=== PATIENT | female | born 1955 | race Caucasian/White ===

== ENCOUNTER 2017-02-08 18:45 | Inpatient (IN) | payer MEDICARE, MEDICAID ==
[~2017-02-08] VITALS: Ht 167.6 cm; Wt 67.6 kg
[~2017-02-08 18:45] MED LIST: BENZ1TAB10 PO; BUPR-93 PO; FLUO-191 PO; MIRT15 PO; QUET400T PO
[2017-02-08 22:31] VITALS: BP 103/62
[2017-02-08] MEDS ORDERED: LORazepam 2 MG TABLET PO PRN (23:00)
[2017-02-08] MEDS ORDERED: ZOLPIDEM TARTRATE 10 MG TABLET PO PRN (23:00)
[2017-02-09] MEDS: HALOPERIDOL 5 MG TABLET PO PRN ×2 (00:37→20:25)
[2017-02-09 00:50] VITALS: BP 141/77
[2017-02-09] MEDS ORDERED: PNEUMOCOCCAL VACCINE POLYVALENT 0.5 ML VIAL [PPSV23] IM ONE (04:15)
[2017-02-09 08:35] VITALS: BP 129/74
[2017-02-09 09:00] LABS: BASOPHILS % (AUTO) 0.7 % (0.0-2.0); EOSINOPHILS % (AUTO) 2.1 % (1.0-6.0); HEMATOCRIT 38.1 % (36-46); HEMOGLOBIN 12.2 g/dL (12.0-16.0); LYMPHOCYTES # (AUTO) 3.6 K/uL (1.0-4.8); LYMPHOCYTES % (AUTO) 41.5 % (22.0-44.0); MEAN CORPUSCULAR HEMOGLOBIN 31.9 pg (26.0-34.0); MEAN CORPUSCULAR HGB CONC 32.1 G/dL (31.0-37.0); MEAN CORPUSCULAR VOLUME 99 fL (80-100); MONOCYTES # (AUTO) 0.6 K/uL (0.1-1.0); MONOCYTES % (AUTO) 7.2 % (2.0-9.0); NEUTROPHILS # (AUTO) 4.2 K/uL (1.8-7.7); NEUTROPHILS % (AUTO) 48.5 % (40.0-70.0); PLATELET COUNT (AUTO) 245 K/uL (150-450); RED BLOOD CELL COUNT(AUTO) 3.83 MIL/uL (4.00-5.20); RED CELL DISTRIBUTION WIDTH 13.3 % (11.5-14.5); WHITE BLOOD COUNT (AUTO) 8.7 K/uL (4.5-11.0)
[2017-02-09 09:46] LABS: ALANINE AMINOTRANSFERASE 18 U/L (12-78); ANION GAP 6 mmol/L (8-16); ASPARTATE AMINOTRANSFERASE 11 U/L (15-37); BILIRUBIN,TOTAL 0.1 mg/dL (0.1-1.0); CARBON DIOXIDE 29 mmol/L (22-29); CHLORIDE 104 mmol/L (98-107); CREATININE 0.77 mg/dL (0.60-1.30); GLOMERULAR FILTR. RATE CALC > 60 mL/min (>60); POTASSIUM 4.1 mmol/L (3.5-5.1); SODIUM SERUM 139 mmol/L (136-145); THYROID STIMULATING HORMONE 1.14 uIU/mL (0.36-3.74); TOTAL PROTEIN, SERUM 6.2 g/dL (6.4-8.2); UREA NITROGEN, BLOOD 21 mg/dL (7-18)
[2017-02-09 10:27] VITALS: BP 105/71
[2017-02-09] MEDS ORDERED: HydrOXYzine PAMOATE 25 MG CAPSULE PO PRN (15:30)
[2017-02-09 16:00] VITALS: BP 103/69
[2017-02-09] MEDS: HALOPERIDOL 5 MG TABLET PO SCH (16:41)
[2017-02-09] MEDS: FLUoxetine HCL 20 MG CAPSULE PO SCH (16:41)
[2017-02-09] MEDS ORDERED: ACETAMINOPHEN 325 MG TABLET PO PRN (21:15)
[2017-02-09] MEDS ORDERED: IBUPROFEN 400 MG TABLET PO PRN (21:15)
[2017-02-10 06:12] VITALS: BP 106/66
[2017-02-10 08:31] LABS: HEMOGLOBIN A1C 6.5 % (4.5-6.2)
[2017-02-10 08:40] VITALS: BP 91/55
[2017-02-10 08:40] LABS: CHOL/HDL RATIO 5.6 (3.9-5.7); THYROID STIMULATING HORMONE 1.05 uIU/mL (0.36-3.74)
[2017-02-10] MEDS: HALOPERIDOL 5 MG TABLET PO SCH ×2 (08:55→17:32)
[2017-02-10] MEDS: FLUoxetine HCL 20 MG CAPSULE PO SCH (08:55)
[2017-02-10 16:26] VITALS: BP 129/77
[2017-02-11 06:33] VITALS: BP 123/72
[2017-02-11] MEDS ORDERED: FLUO-191 PO (07:56)
[2017-02-11] MEDS ORDERED: HALO5TAB23 PO (07:56)
[2017-02-11] MEDS: HALOPERIDOL 5 MG TABLET PO SCH ×2 (08:14→18:11)
[2017-02-11] MEDS: FLUoxetine HCL 20 MG CAPSULE PO SCH (08:14)
[2017-02-11 16:00] VITALS: BP 110/67
[2017-02-12 03:27] VITALS: BP 106/74
[2017-02-12 08:57] VITALS: BP 118/66
[2017-02-12] MEDS: HALOPERIDOL 5 MG TABLET PO SCH (09:53)
[2017-02-12] MEDS: FLUoxetine HCL 20 MG CAPSULE PO SCH (09:53)
== END 2017-02-12 14:18 | disposition home or self-care (01) | DRG 885 ==
LOC: B3A 23:04 → EDSTATUS 23:25
PROVIDERS: ADMIT Psychiatry & Neurology Child & Adolescent Psychiatry; ATTEND Psychiatry & Neurology Child & Adolescent Psychiatry
PROC: 3E0234Z Introduction of Serum, Toxoid and Vaccine into Muscle, Percutaneous Approach (ICD-10-PCS; principal; 2017-02-09)
DX: F25.0 Schizoaffective disorder, bipolar type (principal); R45.851 Suicidal ideations; F41.9 Anxiety disorder, unspecified; K21.9 Gastro-esophageal reflux disease without esophagitis; J44.9 Chronic obstructive pulmonary disease, unspecified; F17.210 Nicotine dependence, cigarettes, uncomplicated; R03.0 Elevated blood-pressure reading, without diagnosis of hypertension; E78.5 Hyperlipidemia, unspecified; Z87.898 Personal history of other specified conditions; Z79.899 Other long term (current) drug therapy; Z91.5 Personal history of self-harm; Z23 Encounter for immunization; Z81.8 Family history of other mental and behavioral disorders
CPT/HCPCS: 83036; 84436; 84439; 84443; 87081; 90471

== ENCOUNTER 2024-08-04 16:37 | Inpatient (IN) | payer MEDICARE, MEDICAID ==
[~2024-08-04] VITALS: Ht 162.6 cm; Wt 46.3 kg
[~2024-08-04 16:37] MED LIST changes: +ACET-2247 PO; -BENZ1TAB10 PO; +BISA10SU11 PR; -BUPR-93 PO; +BUPR100T13 PO; +BUSP10TA23 PO; +CETI-450 PO; +DOCU-385 PO; +FAMO20 PO; -FLUO-191 PO; +FURO40TA6 PO; +GABA-1181 PO; +GUAI-1313 PO; +HYDR30CR3 TP; +HYPR15DR24 OU; +IBUP-1493 PO; +LACT10SO10 PO; +LIDO700A15 TP; +MAGN-169 PO; +MAGN100T PO; +MEGE400O44 PO; -MIRT15 PO; +ONDA4 PO; +POLY17PO47 PO; +POTA-92 PO; -QUET400T PO; +SENN-376 PO; +SERT-162 PO; +SIME80TA82 PO
[2024-08-04 17:43] LABS: BASOPHILS % (AUTO) 0.1 % (0.0-2.0); EOSINOPHILS % (AUTO) 0.1 % (1.0-6.0); HEMATOCRIT 39.4 % (36-46); HEMOGLOBIN 13.1 g/dL (12.0-16.0); LYMPHOCYTES # (AUTO) 1.6 K/uL (1.0-4.8); LYMPHOCYTES % (AUTO) 22.9 % (22.0-44.0); MEAN CORPUSCULAR HEMOGLOBIN 33.1 pg (26.0-34.0); MEAN CORPUSCULAR HGB CONC 33.4 G/dL (31.0-37.0); MEAN CORPUSCULAR VOLUME 99 fL (80-100); MONOCYTES # (AUTO) 0.4 K/uL (0.1-1.0); MONOCYTES % (AUTO) 6.6 % (2.0-9.0); NEUTROPHILS # (AUTO) 4.8 K/uL (1.8-7.7); NEUTROPHILS % (AUTO) 70.3 % (40.0-70.0); PLATELET COUNT (AUTO) 276 K/uL (150-450); RED BLOOD CELL COUNT(AUTO) 3.97 MIL/uL (4.00-5.20); RED CELL DISTRIBUTION WIDTH 15.1 % (11.5-14.5); WHITE BLOOD COUNT (AUTO) 6.8 K/uL (4.5-11.0)
[2024-08-04 17:53] LABS: ANION GAP 8 mmol/L (8-16); CALCIUM, TOTAL 8.9 mg/dL (8.8-10.5); CARBON DIOXIDE 29 mmol/L (22-29); CHLORIDE 99 mmol/L (98-107); CREATININE 0.57 mg/dL (0.60-1.30); GLOMERULAR FILTR. RATE CALC > 60 mL/min (>60); GLUCOSE,RANDOM 104 mg/dL (70-110); POTASSIUM 3.9 mmol/L (3.5-5.1); SODIUM SERUM 135 mmol/L (136-145); UREA NITROGEN, BLOOD 7 mg/dL (7-18)
[2024-08-04 17:56] LABS: ALCOHOL, BLOOD (SERUM) < 3 mg/dL (0-10)
[2024-08-04 19:18] LABS: COVID AG,FIA SOURCE NASAL SWAB
[2024-08-04 19:49] LABS: SARS-COV2 (COVID) ANTIGEN,FIA Negative (Negative)
[2024-08-04 20:08] LABS: APPEARANCE,URINE CLEAR (CLEAR); BILIRUBIN,URINE NEGATIVE (NEGATIVE); COLOR,URINE LIGHT YELLOW (YELLOW); GLUCOSE, URINE (UA) NEGATIVE (NEGATIVE); KETONES,URINE TRACE mg/dL (NEGATIVE); LEUKOCYTE ESTERASE ,URINE NEGATIVE (NEGATIVE); NITRATE,URINE POSITIVE (NEGATIVE); OCCULT BLOOD,URINE NEGATIVE (NEGATIVE); PROTEIN,URINE NEGATIVE (NEGATIVE); SPECIFIC GRAVITIY, URINE 1.012 (1.003-1.030); UROBILINOGEN,URINE <=1.0 mg/dL (<=1.0)
[2024-08-04 20:16] LABS: AMPHET/METH SCREEN,URINE NEGATIVE (NEGATIVE); BARBITURATE SCREEN, URINE NEGATIVE (NEGATIVE); BENZODIAZEPINES SCREEN,URINE NEGATIVE (NEGATIVE); CANNABINOID SCREEN,URINE NEGATIVE (NEGATIVE); COCAINE SCREEN,URINE NEGATIVE (NEGATIVE); METHADONE SCREEN, URINE NEGATIVE (NEGATIVE); OPIATE SCREEN,URINE NEGATIVE (NEGATIVE); PHENCYCLIDINE SCREEN,URINE NEGATIVE (NEGATIVE)
[2024-08-04 20:20] LABS: ALCOHOL, URINE DRUG SCREEN NEGATIVE (NEGATIVE)
[2024-08-04 20:34] LABS: BACTERIA,URINE Many /HPF (None Seen); RBC,URINE None Seen /HPF (0-2); WBC,URINE None Seen /HPF (0-5)
[2024-08-05 05:42] LABS: CHOL/HDL RATIO 4.5 (3.9-5.7)
[2024-08-05 07:02] LABS: HEMOGLOBIN A1C 5.7 % (3.8-5.6)
[2024-08-05 13:27] VITALS: BP 101/72; PULSE 75; RESP 18; TEMP 97.9; O2SAT 96
[2024-08-05] MEDS: BuPROPion HCL 100 MG SR TABLET PO SCH (15:08)
[2024-08-05] MEDS: SERTRALINE HCL 100 MG TABLET PO SCH (15:11)
[2024-08-05] MEDS: BusPIRone HCL 10 MG TABLET PO SCH (18:04)
[2024-08-05] MEDS: RisperiDONE 2 MG TABLET PO SCH (18:05)
[2024-08-05 20:15] VITALS: BP 97/63; PULSE 72; RESP 18; TEMP 97.9; O2SAT 98
[2024-08-05] MEDS: LORazepam 2 MG TABLET PO PRN (21:35)
[2024-08-05] MEDS: HALOPERIDOL 5 MG TABLET PO PRN (21:36)
[2024-08-05] MEDS: ZOLPIDEM TARTRATE 10 MG TABLET PO PRN (22:02)
[2024-08-06 09:00] VITALS: BP 104/64; PULSE 70; RESP 17; TEMP 98.6; O2SAT 95
[2024-08-06] MEDS: CIPROFLOXACIN HCL 500 MG TABLET PO SCH (09:00)
[2024-08-06 20:36] VITALS: BP 90/68; PULSE 69; RESP 18; TEMP 97.4; O2SAT 96
[2024-08-07 08:25] VITALS: BP 97/63; PULSE 76; RESP 17; TEMP 97.8; O2SAT 95
[2024-08-07] MEDS: MULTIVITAMINS WITH MINERALS, THERAPEUTIC TABLET PO SCH (09:02)
[2024-08-07] MEDS: THIAMINE 100 MG TABLET PO SCH (09:03)
[2024-08-07 20:06] VITALS: BP 102/70; PULSE 74; RESP 18; TEMP 97.8; O2SAT 98
[2024-08-08 08:43] VITALS: BP 90/69; PULSE 77; RESP 17; TEMP 98; O2SAT 96
[2024-08-08 20:00] VITALS: BP 99/60; PULSE 73; RESP 17; TEMP 97.1; O2SAT 95
[2024-08-09 08:13] VITALS: BP 102/72; PULSE 91; RESP 18; TEMP 97.3; O2SAT 94
[2024-08-09 20:34] VITALS: BP 99/66; PULSE 79; RESP 17; TEMP 97.4; O2SAT 96
[2024-08-10 08:19] VITALS: BP 102/67; PULSE 79; RESP 18; TEMP 98.4; O2SAT 95
[2024-08-10 20:10] VITALS: BP 106/77; PULSE 74; RESP 18; TEMP 97.3
[2024-08-11 13:24] VITALS: RESP 16
[2024-08-11 21:28] VITALS: BP 110/80; PULSE 81; RESP 19; TEMP 97.9; O2SAT 97
[2024-08-12 08:30] VITALS: BP 122/89; PULSE 87; RESP 17; TEMP 97.2; O2SAT 98
[2024-08-12 09:11] LABS: GLUCOMETER DEV NAME(LOC) 3E.I 2; GLUCOSE,POINT OF CARE 140 MG/DL (70-110)
[2024-08-12] MEDS: LevETIRAcetam 500 MG TABLET PO SCH (09:14)
[2024-08-12 10:15] LABS: BASOPHILS % (AUTO) 0.1 % (0.0-2.0); EOSINOPHILS % (AUTO) 0.1 % (1.0-6.0); HEMATOCRIT 40.7 % (36-46); HEMOGLOBIN 13.5 g/dL (12.0-16.0); LYMPHOCYTES # (AUTO) 1.7 K/uL (1.0-4.8); LYMPHOCYTES % (AUTO) 20.6 % (22.0-44.0); MEAN CORPUSCULAR HEMOGLOBIN 32.9 pg (26.0-34.0); MEAN CORPUSCULAR HGB CONC 33.1 G/dL (31.0-37.0); MEAN CORPUSCULAR VOLUME 99 fL (80-100); MONOCYTES # (AUTO) 0.5 K/uL (0.1-1.0); MONOCYTES % (AUTO) 5.5 % (2.0-9.0); NEUTROPHILS # (AUTO) 6.1 K/uL (1.8-7.7); NEUTROPHILS % (AUTO) 73.7 % (40.0-70.0); PLATELET COUNT (AUTO) 313 K/uL (150-450); RED CELL DISTRIBUTION WIDTH 14.9 % (11.5-14.5); WHITE BLOOD COUNT (AUTO) 8.3 K/uL (4.5-11.0)
[2024-08-12 10:25] LABS: ANION GAP 6 mmol/L (8-16); CARBON DIOXIDE 30 mmol/L (22-29); CHLORIDE 101 mmol/L (98-107); CREATININE 0.75 mg/dL (0.60-1.30); GLOMERULAR FILTR. RATE CALC > 60 mL/min (>60); GLUCOSE,RANDOM 94 mg/dL (70-110); POTASSIUM 3.2 mmol/L (3.5-5.1); SODIUM SERUM 137 mmol/L (136-145); UREA NITROGEN, BLOOD 10 mg/dL (7-18)
[2024-08-12 10:30] LABS: ALANINE AMINOTRANSFERASE 18 U/L (12-78); ALBUMIN 2.6 g/dL (3.4-5.0); ALKALINE PHOSPHATASE 75 U/L (46-116); ASPARTATE AMINOTRANSFERASE 19 U/L (15-37); BILIRUBIN,TOTAL 0.2 mg/dL (0.1-1.0); TOTAL PROTEIN, SERUM 6.7 g/dL (6.4-8.2)
[2024-08-12 10:33] LABS: TROPONIN I-HIGH SENSITIVITY 6 ng/L (<51)
[2024-08-12 10:44] LABS: LACTIC ACID 3.4 mmol/L (0.4-2.0)
[2024-08-12] MEDS: POTASSIUM CHLORIDE 20 MEQ ER TABLET PO ONE ×2 (12:16→17:43)
[2024-08-12 15:21] VITALS: BP 93/66; PULSE 92; RESP 16; O2SAT 96
[2024-08-12] MEDS: IBUPROFEN 600 MG TABLET PO PRN (15:21)
[2024-08-12] MEDS: DiphenhydrAMINE HCL 25 MG CAPSULE PO ONE (16:45)
[2024-08-12 20:00] VITALS: BP 91/63; PULSE 73; RESP 19; TEMP 98; O2SAT 95
[2024-08-13] MEDS: DiphenhydrAMINE HCL 25 MG CAPSULE PO PRN (07:24)
[2024-08-13 10:18] VITALS: RESP 17
[2024-08-13 21:13] VITALS: BP 120/75; PULSE 71; RESP 18; TEMP 98.7; O2SAT 98
[2024-08-14 09:00] VITALS: BP 125/72; PULSE 68; RESP 17; TEMP 97.8; O2SAT 96
[2024-08-14 20:08] VITALS: BP 129/73; PULSE 83; RESP 18; TEMP 97.5
[2024-08-15 10:27] VITALS: BP 101/74; PULSE 78; RESP 16; TEMP 98; O2SAT 95
[2024-08-15 20:41] VITALS: RESP 16
[2024-08-16 08:30] VITALS: BP 96/61; PULSE 67; RESP 16; O2SAT 95
[2024-08-16 20:00] VITALS: BP 100/69; RESP 18; O2SAT 96
[2024-08-16 20:21] VITALS: BP 96/63; PULSE 72; RESP 16; TEMP 97.8; O2SAT 96
[2024-08-17 08:00] VITALS: BP 107/65; PULSE 67; RESP 17; TEMP 98.1; O2SAT 96
[2024-08-17 20:52] VITALS: RESP 17
[2024-08-18 09:56] VITALS: BP 103/64; PULSE 68; RESP 18; TEMP 97.8; O2SAT 95
[2024-08-18 20:19] VITALS: RESP 18
[2024-08-19 05:45] VITALS: BP 96/62; PULSE 63; RESP 18; TEMP 99.3; O2SAT 96
[2024-08-19 08:45] VITALS: BP 108/64; PULSE 75; RESP 18; TEMP 99.8; O2SAT 95
[2024-08-19] MEDS: LevETIRAcetam 250 MG TABLET PO SCH (09:39)
[2024-08-19] MEDS: PALIPERIDONE PALMITATE 234 MG/1.5 ML SYRINGE IM SCH (10:46)
[2024-08-19 20:56] VITALS: BP 117/58; PULSE 74; RESP 18; TEMP 98.4; O2SAT 100
[2024-08-20 09:21] VITALS: BP 105/71; PULSE 87; RESP 18; TEMP 97.7; O2SAT 95
[2024-08-20 21:23] VITALS: BP 100/70; PULSE 82; RESP 18; TEMP 97.3; O2SAT 97
[2024-08-21 08:42] VITALS: BP 105/71; PULSE 99; RESP 18; TEMP 98.3; O2SAT 96
[2024-08-21 20:36] VITALS: BP 109/71; PULSE 80; RESP 18; TEMP 97.6; O2SAT 95
[2024-08-22 08:33] VITALS: BP 120/90; PULSE 101; TEMP 97.9; O2SAT 96
[2024-08-22 20:21] VITALS: BP 140/90; PULSE 95; RESP 18; TEMP 99.5; O2SAT 96
[2024-08-23 09:03] VITALS: BP 96/62; PULSE 76; RESP 18; TEMP 97.5; O2SAT 100
[2024-08-23 20:19] VITALS: BP 117/75; PULSE 96; RESP 20; TEMP 98.2; O2SAT 95
[2024-08-24 10:32] VITALS: BP 135/74; PULSE 80; RESP 18; TEMP 95.7; O2SAT 98
[2024-08-24] MEDS: RisperiDONE 3 MG TABLET PO SCH (16:33)
[2024-08-24 20:40] VITALS: BP 98/56; PULSE 80; RESP 18; TEMP 98; O2SAT 95
[2024-08-25 11:45] VITALS: RESP 18; TEMP 97.4
[2024-08-25 21:31] VITALS: BP 107/63; PULSE 73; RESP 18; TEMP 98.9; O2SAT 94
[2024-08-26 09:14] VITALS: BP 112/67; PULSE 69; RESP 18; TEMP 98.9; O2SAT 98
[2024-08-26 21:40] VITALS: RESP 18; TEMP 97.3
[2024-08-27 11:15] VITALS: BP 102/65; PULSE 83; RESP 18; TEMP 98.2; O2SAT 97
[2024-08-27 22:30] VITALS: BP 96/65; PULSE 96; RESP 18; TEMP 98; O2SAT 96
[2024-08-28 12:58] VITALS: BP 106/65; PULSE 83; RESP 19; TEMP 97.3; O2SAT 96
[2024-08-28 22:29] VITALS: BP 90/60; PULSE 70; RESP 18; TEMP 98; O2SAT 97
[2024-08-29] MEDS: BuPROPion HCL XL 150 MG ER TABLET PO SCH (09:37)
[2024-08-29] MEDS: SERTRALINE HCL 100 MG TABLET PO SCH (09:38)
[2024-08-29 10:41] VITALS: BP 93/63; PULSE 61; RESP 18; TEMP 97.6; O2SAT 95
[2024-08-29 20:53] VITALS: BP 102/70; PULSE 79; RESP 16; TEMP 98.2; O2SAT 95
[2024-08-30 08:00] VITALS: BP 105/70; PULSE 74; RESP 18; TEMP 97.9; O2SAT 95
[2024-08-30 20:46] VITALS: BP 125/65; PULSE 86; RESP 18; TEMP 98.5; O2SAT 96
[2024-08-31 09:00] VITALS: BP 110/63; PULSE 95; RESP 18; TEMP 97.4; O2SAT 95
[2024-08-31 21:23] VITALS: RESP 18; TEMP 97.7
[2024-09-01 08:30] VITALS: BP 95/59; PULSE 87; RESP 18; TEMP 97.4; O2SAT 96
[2024-09-01 20:21] VITALS: BP 110/71; PULSE 80; RESP 16; TEMP 97; O2SAT 97
[2024-09-02 08:49] VITALS: BP 98/63; PULSE 99; RESP 20; TEMP 98.3; O2SAT 99
[2024-09-03 01:56] VITALS: BP 131/82; PULSE 91; RESP 19; TEMP 98.2; O2SAT 97
[2024-09-03 10:10] VITALS: BP 120/79; PULSE 79; RESP 18; TEMP 98.1; O2SAT 100
[2024-09-03 22:32] VITALS: RESP 18
[2024-09-04 10:34] VITALS: BP 119/86; PULSE 69; RESP 16; TEMP 97; O2SAT 98
[2024-09-04 22:29] VITALS: BP 95/65; RESP 18; TEMP 98; O2SAT 97
[2024-09-05 10:25] VITALS: BP 101/65; RESP 18; TEMP 98.9; O2SAT 95
[2024-09-05 21:01] VITALS: RESP 18
[2024-09-06] VITALS (14 sets, daily range): BP systolic 98–133; BP diastolic 62–91; PULSE 63–88; RESP 16–19; TEMP 97.7–98.9; O2SAT 96–99
[2024-09-07] VITALS (10 sets, daily range): BP systolic 96–128; BP diastolic 59–70; PULSE 19–78; RESP 16–19; TEMP 97.3–98.7; O2SAT 95–98
[2024-09-08 03:35] VITALS: BP 121/68; PULSE 68; RESP 19; TEMP 98; O2SAT 98
[2024-09-08 07:46] LABS: BASOPHILS % (AUTO) 0.3 % (0.0-2.0); EOSINOPHILS % (AUTO) 0.2 % (1.0-6.0); HEMATOCRIT 37.1 % (36-46); HEMOGLOBIN 12.2 g/dL (12.0-16.0); LYMPHOCYTES % (AUTO) 27.1 % (22.0-44.0); MEAN CORPUSCULAR HEMOGLOBIN 32.7 pg (26.0-34.0); MEAN CORPUSCULAR HGB CONC 32.8 G/dL (31.0-37.0); MEAN CORPUSCULAR VOLUME 100 fL (80-100); MONOCYTES # (AUTO) 0.9 K/uL (0.1-1.0); MONOCYTES % (AUTO) 7.9 % (2.0-9.0); NEUTROPHILS # (AUTO) 7.2 K/uL (1.8-7.7); NEUTROPHILS % (AUTO) 64.5 % (40.0-70.0); PLATELET COUNT (AUTO) 235 K/uL (150-450); RED BLOOD CELL COUNT(AUTO) 3.72 MIL/uL (4.00-5.20); RED CELL DISTRIBUTION WIDTH 14.7 % (11.5-14.5); WHITE BLOOD COUNT (AUTO) 11.1 K/uL (4.5-11.0)
[2024-09-08 07:56] LABS: ALANINE AMINOTRANSFERASE 16 U/L (12-78); ALBUMIN 2.4 g/dL (3.4-5.0); ALKALINE PHOSPHATASE 72 U/L (46-116); ANION GAP 2 mmol/L (8-16); ASPARTATE AMINOTRANSFERASE 21 U/L (15-37); BILIRUBIN,TOTAL 0.2 mg/dL (0.1-1.0); CALCIUM, TOTAL 8.8 mg/dL (8.8-10.5); CARBON DIOXIDE 33 mmol/L (22-29); CHLORIDE 103 mmol/L (98-107); CREATININE 0.56 mg/dL (0.60-1.30); GLOMERULAR FILTR. RATE CALC > 60 mL/min (>60); GLUCOSE,RANDOM 79 mg/dL (70-110); POTASSIUM 4.3 mmol/L (3.5-5.1); SODIUM SERUM 138 mmol/L (136-145); TOTAL PROTEIN, SERUM 6.6 g/dL (6.4-8.2); UREA NITROGEN, BLOOD 12 mg/dL (7-18)
[2024-09-08] MEDS: MEGESTROL ACETATE 40 MG TABLET PO SCH (09:54)
[2024-09-08 12:21] VITALS: BP 99/65; PULSE 96; RESP 17; TEMP 97.8; O2SAT 96
[2024-09-08 20:36] VITALS: BP 121/77; PULSE 94; RESP 18; TEMP 97.9; O2SAT 98
[2024-09-09 09:00] VITALS: BP 117/74; PULSE 91; RESP 17; TEMP 97.8; O2SAT 96
[2024-09-09 20:35] VITALS: BP 91/60; PULSE 83; RESP 18; TEMP 98.1; O2SAT 95
[2024-09-09] MEDS: DiphenhydrAMINE HCL 50 MG/ML VIAL IM ONE (21:19)
[2024-09-09] MEDS: LORazepam 2 MG/ML VIAL IM ONE (21:20)
[2024-09-09] MEDS: HALOPERIDOL LACTATE 5 MG/ML VIAL IM ONE (21:23)
[2024-09-10 08:21] VITALS: BP 126/70; PULSE 96; RESP 18; TEMP 97.8; O2SAT 98
[2024-09-10 21:55] VITALS: BP 96/59; PULSE 81; RESP 18; TEMP 98.4; O2SAT 98
[2024-09-11 08:48] VITALS: BP 89/55; PULSE 70; RESP 17; TEMP 97.7; O2SAT 97
[2024-09-11] MEDS ORDERED: DiphenhydrAMINE HCL 25 MG CAPSULE PO PRN (19:15)
[2024-09-11 20:55] VITALS: BP 95/61; PULSE 75; RESP 17; TEMP 98.8; O2SAT 97
[2024-09-11] MEDS: MINERAL OIL/PETROLATUM 120 GM CREAM TP SCH (21:40)
[2024-09-11] MEDS: DiphenhydrAMINE HCL 50 MG CAPSULE PO PRN (21:41)
[2024-09-12] MEDS: DOCUSATE SODIUM 100 MG CAPSULE PO SCH (08:46)
[2024-09-12 08:57] VITALS: BP 96/64; PULSE 80; RESP 18; TEMP 97.7; O2SAT 96
[2024-09-12 20:22] VITALS: RESP 18
[2024-09-13 08:46] VITALS: BP 99/65; PULSE 64; RESP 18; TEMP 98.8; O2SAT 0
[2024-09-13 15:50] VITALS: BP 111/75; RESP 17; O2SAT 0
[2024-09-13 20:03] VITALS: BP 117/81; PULSE 68; RESP 18; TEMP 98.1; O2SAT 98
[2024-09-14 11:15] VITALS: BP 96/68; PULSE 74; RESP 18; TEMP 98.7; O2SAT 96
[2024-09-14] MEDS: CIPROFLOXACIN HCL 500 MG TABLET PO SCH (12:09)
[2024-09-14 12:52] LABS: BASOPHILS % (AUTO) 0.3 % (0.0-2.0); EOSINOPHILS % (AUTO) 0.1 % (1.0-6.0); HEMATOCRIT 39.2 % (36-46); HEMOGLOBIN 12.9 g/dL (12.0-16.0); LYMPHOCYTES # (AUTO) 1.7 K/uL (1.0-4.8); MEAN CORPUSCULAR HEMOGLOBIN 32.8 pg (26.0-34.0); MEAN CORPUSCULAR HGB CONC 33.1 G/dL (31.0-37.0); MEAN CORPUSCULAR VOLUME 99 fL (80-100); MONOCYTES # (AUTO) 0.5 K/uL (0.1-1.0); MONOCYTES % (AUTO) 6.2 % (2.0-9.0); NEUTROPHILS # (AUTO) 5.2 K/uL (1.8-7.7); NEUTROPHILS % (AUTO) 70.4 % (40.0-70.0); PLATELET COUNT (AUTO) 298 K/uL (150-450); RED BLOOD CELL COUNT(AUTO) 3.95 MIL/uL (4.00-5.20); RED CELL DISTRIBUTION WIDTH 14.4 % (11.5-14.5); WHITE BLOOD COUNT (AUTO) 7.4 K/uL (4.5-11.0)
[2024-09-14] MEDS: FluPHENAZine HCL 10 MG TABLET PO SCH (13:00)
[2024-09-14 13:11] LABS: ALANINE AMINOTRANSFERASE 20 U/L (12-78); ALBUMIN 2.7 g/dL (3.4-5.0); ALKALINE PHOSPHATASE 83 U/L (46-116); ANION GAP 8 mmol/L (8-16); ASPARTATE AMINOTRANSFERASE 20 U/L (15-37); BILIRUBIN,TOTAL 0.3 mg/dL (0.1-1.0); CARBON DIOXIDE 28 mmol/L (22-29); CHLORIDE 102 mmol/L (98-107); CREATININE 0.72 mg/dL (0.60-1.30); GLOMERULAR FILTR. RATE CALC > 60 mL/min (>60); GLUCOSE,RANDOM 147 mg/dL (70-110); POTASSIUM 4.1 mmol/L (3.5-5.1); SODIUM SERUM 138 mmol/L (136-145); TOTAL PROTEIN, SERUM 7.1 g/dL (6.4-8.2); UREA NITROGEN, BLOOD 12 mg/dL (7-18)
[2024-09-14] MEDS: RisperiDONE 2 MG TABLET PO SCH (17:17)
[2024-09-14 20:38] VITALS: BP 106/67; PULSE 74; RESP 18; TEMP 98.2; O2SAT 97
[2024-09-15 08:05] VITALS: BP 101/68; PULSE 85; RESP 17; TEMP 97.1; O2SAT 96
[2024-09-15 20:07] VITALS: BP 96/60; PULSE 79; RESP 17; TEMP 98.9; O2SAT 95
[2024-09-16 09:01] VITALS: BP 96/60; PULSE 76; RESP 18; TEMP 98; O2SAT 98
[2024-09-16 21:02] VITALS: RESP 18
[2024-09-17 08:18] VITALS: BP 128/71; PULSE 88; RESP 18; TEMP 97.8; O2SAT 94
[2024-09-17 19:47] VITALS: BP 94/58; PULSE 77; RESP 18; TEMP 97.9; O2SAT 98
[2024-09-17 20:23] VITALS: BP 94/58; PULSE 77; RESP 18; TEMP 97.9; O2SAT 98
[2024-09-18 08:42] VITALS: BP 113/58; PULSE 75; RESP 17; TEMP 99; O2SAT 94
[2024-09-18 20:13] VITALS: RESP 18
[2024-09-19 08:15] VITALS: BP 102/66; PULSE 73; RESP 17; TEMP 97.8; O2SAT 97
[2024-09-19 20:33] VITALS: BP 136/73; PULSE 77; RESP 18; TEMP 97; O2SAT 98
[2024-09-20 10:25] VITALS: BP 120/77; PULSE 96; RESP 19; TEMP 98.8; O2SAT 99
[2024-09-20 20:12] VITALS: BP 112/66; PULSE 99; RESP 18; TEMP 97.4; O2SAT 95
[2024-09-21 11:49] VITALS: RESP 18
[2024-09-21] MEDS: GuaiFENesin/D-METHORPHAN [SUGAR-FREE] 200-20MG/10 ML SYRUP UDCUP PO PRN (18:15)
[2024-09-21] MEDS: AZITHROMYCIN 500 MG TABLET PO SCH (18:15)
[2024-09-21] MEDS: ACETAMINOPHEN 325 MG TABLET PO PRN (18:15)
[2024-09-21] MEDS: FLUTICASONE PROPIONATE 50 MCG/SPRAY 16 GM NASAL SPRAY NASAL PRN (18:16)
[2024-09-21 20:52] VITALS: BP 95/57; RESP 18; O2SAT 97
[2024-09-22 08:16] VITALS: BP 8/69; PULSE 82; RESP 17; TEMP 97.9; O2SAT 96
[2024-09-22] MEDS ORDERED: FLUTICASONE PROPIONATE 50 MCG/SPRAY 16 GM NASAL SPRAY NASAL SCH (09:00)
[2024-09-22 18:37] LABS: COVID AG,FIA SOURCE NASAL SWAB
[2024-09-22 19:04] LABS: SARS-COV2 (COVID) ANTIGEN,FIA Negative (Negative)
[2024-09-22 20:46] VITALS: BP 108/71; PULSE 97; RESP 18; TEMP 97.4; O2SAT 97
[2024-09-23 09:12] VITALS: BP 107/68; PULSE 70; RESP 18; TEMP 97.6; O2SAT 98
[2024-09-23 20:18] VITALS: BP 107/79; PULSE 82; RESP 18; TEMP 97.1; O2SAT 97
[2024-09-24 10:24] VITALS: BP 115/98; PULSE 72; RESP 18; TEMP 97.5; O2SAT 95
[2024-09-24] MEDS ORDERED: RISP-32 PO (17:01)
[2024-09-24] MEDS ORDERED: BUPR-514 PO (17:01)
[2024-09-24] MEDS ORDERED: FLUP10TA28 PO (17:01)
[2024-09-24] MEDS ORDERED: PALI234D IM (17:03)
[2024-09-24 20:14] VITALS: BP 94/55; PULSE 76; RESP 17; TEMP 98.4; O2SAT 96
[2024-09-25 14:24] VITALS: BP 105/64; PULSE 82; RESP 17; TEMP 97.6; O2SAT 95
== END 2024-09-25 18:50 | DRG 885 ==
LOC: EMS 16:51 → 3EX 08-05 08:00 → EDBEDREQ 08-05 08:47 → EDBEDREQSVC 08-05 08:47 → 3EX 08-05 10:40 → 3EI 08-05 11:28 → 3EX 08-11 21:18
PROVIDERS: ADMIT Psychiatry & Neurology Child & Adolescent Psychiatry; ATTEND Psychiatry & Neurology Child & Adolescent Psychiatry
PROC: GZHZZZZ Group Psychotherapy (ICD-10-PCS; principal; 2024-08-05)
PROC: GZ56ZZZ Individual Psychotherapy, Supportive (ICD-10-PCS; 2024-08-05)
DX: F25.0 Schizoaffective disorder, bipolar type (principal); R62.7 Adult failure to thrive; R56.9 Unspecified convulsions; K21.9 Gastro-esophageal reflux disease without esophagitis; Z20.822 Contact with and (suspected) exposure to COVID-19; Z79.899 Other long term (current) drug therapy; J44.89 Other specified chronic obstructive pulmonary disease
CPT/HCPCS: 70450; 70551; 71045; 71046; 80048; 80053; 80061; 80307; 81001; 82140; 82962; 83036; 83605; 84132; 84484; 85025; 87081; 87086; 93005; 99285; G0378; G0480; G0482; J1200; J1630; J2060; 36415-L1; 36415-TC